=== PATIENT | female | born 2005 | race African-American/Black ===

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

== ENCOUNTER 2023-10-31 00:54 | Emergency (ER) | payer MEDICAID ==
[~2023-10-31] VITALS: Wt 79.4 kg
[~2023-10-31 00:54] MED LIST: AMOXICILLIN 50500 MG PO; MACROBID 1100 MG/CAP PO
[2023-10-31 00:57] VITALS: TEMP 97
[2023-10-31] MEDS ORDERED: Iohexol 300 - 100 ML VIAL IV ONE (01:26)
[2023-10-31] MEDS ORDERED: NS 100 ML IV SCH (01:27)
[2023-10-31 01:28] LABS: BASO % 0.2 % (0.0-2.0); EOS % 0.1 % (0.0-4.0); GRAN # 11.6 K/mm3 (1.4-6.5); GRAN % 71.9 % (42.2-75.2); HEMOGLOBIN 10.5 g/dl (12.0-15.0); LYMPH # 3.5 K/mm3 (1.2-3.4); LYMPH % 21.5 % (20.0-51.0); MEAN CELL VOLUME 83 fl (80.0-95.0); MEAN CORPUSCULAR HEMOGLOBIN 29 pg (26-32); MEAN CORPUSCULAR HGB CONC 35 g/dl (33.0-37.0); MEAN PLATELET VOLUME 10.4 fl (7.4-10.4); MONO # 0.9 K/mm3 (0.1-0.6); MONO % 5.8 % (1.7-9.3); PLATELET COUNT 206 K/mm3 (130-400); RED BLOOD COUNT 3.59 M/mm3 (4.10-5.30); REDCELL DISTRIBUTION WIDTH-CV 11.9 % (11.5-14.5)
[2023-10-31 01:29] LABS: HEMATOCRIT 29.9 % (35.0-45.0)
[2023-10-31 01:29] LABS: ALBUMIN 3.5 g/dL (3.5-5.0); BILIRUBIN,TOTAL 0.6 mg/dL (0.2-1.2); CALCIUM 8.4 mg/dL (8.4-10.2); CREATININE, serum 0.94 mg/dL (0.57-1.11)
[2023-10-31 01:51] VITALS: BP 114/80; PULSE 62
== END 2023-10-31 02:00 | disposition short-term general hospital (02) ==
LOC: COL.ER 00:54
PROVIDERS: Emergency Medicine
DX: S31.635A Puncture wound without foreign body of abdominal wall, periumbilic region with penetration into peritoneal cavity, initial encounter (principal); X95.9XXA Assault by unspecified firearm discharge, initial encounter; Y92.810 Car as the place of occurrence of the external cause
CPT/HCPCS: Q9967